=== PATIENT | male | born 1995 | race Hispanic/Latino ===

== ENCOUNTER 2023-01-26 09:46 | Emergency (ER) | payer OTHER ==
[~2023-01-26] VITALS: Ht 167.6 cm; Wt 68.0 kg
[2023-01-26] MEDS ORDERED: MUPIROCIN21 TOP (10:33)
[2023-01-26 10:42] VITALS: BP 131/84
== END 2023-01-26 10:43 | disposition home or self-care (01) | DRG 605 ==
LOC: ED 09:46
DX: S40.811A Abrasion of right upper arm, initial encounter (principal); Y08.89XA Assault by other specified means, initial encounter; Y92.129 Unspecified place in nursing home as the place of occurrence of the external cause